=== PATIENT | male | born 1995 | race Caucasian/White ===

== ENCOUNTER 2020-10-24 05:14 | Emergency (ER) | payer OTHER ==
[2020-10-24] MEDS ORDERED: SODIUM CHLORIDE 0.9% 1,000 ML IV STA ×2 (05:29)
[2020-10-24] MEDS ORDERED: SODIUM CHLORIDE 0.9% 500 ML 500 ML IV STA (05:29)
[2020-10-24] MEDS ORDERED: KETOROLAC 15 MG/ML 1 ML VIAL IVP STA (05:29)
--- NOTE | 2020-10-24 05:46 | ED ---
Abdominal Pain HPI <Felix Schwartz - Last Filed: 10/24/20 07:43> - General Source: patient, RN notes reviewed, old records reviewed Mode of arrival: ambulatory Limitations: no limitations - History of Present Illness MD Complaint: abdominal pain, flank pain (left) -: hour(s) Location: LLQ, suprapubic Radiation: L flank Migration to: suprapubic Severity: severe Severity scale (1-10): 7 Quality: sharp Consistency: constant Improves With: nothing Worsens With: nothing Associated Symptoms: nausea Treatments Prior to Arrival: NSAIDs <Jd Yin - Last Filed: 10/24/20 23:06> - General Chief Complaint: Abdominal Pain Stated Complaint: Poss kidney stones Time Seen by Provider: 10/24/20 05:20 - History of Present Illness Initial Comments: This is a 24-year-old male with no significant medical history coming a significant left-sided flank pain 5. His current his back around his back severe with significant hematuria. Mild nausea no vomiting no fevers. No prior history of kidney stones. No difficulty with bowel movements. And again significant metabolic near (Jd Yin) - Related Data Allergies Allergy/AdvReac Type Severity Reaction Status Date / Time No Known Allergies Allergy Verified 10/24/20 05:27 Review of Systems ROS Other: All systems not noted in ROS Statement are negative. <Felix Schwartz - Last Filed: 10/24/20 07:43> ROS Other: All systems not noted in ROS Statement are negative. <Jd Yin - Last Filed: 10/24/20 23:06> ROS Statement: Those systems with pertinent positive or pertinent negative responses have been documented in the HPI. Past Medical History Past Medical History: No Reported History History of Any Multi-Drug Resistant Organisms: None Reported Past Surgical History: No Surgical Hx Reported Past Psychological History: No Psychological Hx Reported Smoking Status: Current every day smoker Past Alcohol Use History: Occasional Past Drug Use History: Marijuana <Jd Yin - Last Filed: 10/24/20 23:06> General Exam Limitations: no limitations <Jd Yin - Last Filed: 10/24/20 23:06> Course <Jd Yin - Last Filed: 10/24/20 23:06> Vital Signs 10/24/20 10/24/20 05:25 08:08 Temperature 98.4 F 97.6 F Pulse Rate 71 79 Respiratory 18 16 Rate Blood Pressure 147/89 113/75 O2 Sat by Pulse 100 98 Oximetry - Reevaluation(s) Reevaluation #1: Medical records reviewed Patient has complete adequate pain control currently Patient is informed of results and questions have been answered (Jd Yin) Medical Decision Making - Lab Data Result diagrams: 10/24/20 05:52 10/24/20 05:52 <Felix Schwartz - Last Filed: 10/24/20 07:43> - Lab Data Result diagrams: 10/24/20 05:52 10/24/20 05:52 - Radiology Data Radiology results: report reviewed (CT head and pelvis does show left ureteral stones), image reviewed <Jd Yin - Last Filed: 10/24/20 23:06> - Medical Decision Making Patient care signed out to me by. Shift physician. Briefly, patient is a 24-year-old male presents today with left flank symptoms. At signout plan was to follow-up with CT radiology read. CT shows 4 mm left proximal ureteral stone with 2 left-sided UPJ stones measuring up to 7 mm with mild left hydroureter. Chin reevaluated at bedside at 7:40 AM found with stable medical condition. Does not appear to be in significant pain. Patient is agreeable for discharge. Is given follow-up with outpatient urologist. Patient told to take [id number] pain medications or rest pain. Told to stay well-hydrated. He is given a starter pack for Zofran. (Felix Schwartz) - Lab Data Lab Results 10/24/20 10/24/20 10/24/20 Range/Units 05:52 05:52 05:52 WBC 17.9 H (3.8-10.6) k/uL RBC 4.97 (4.30-5.90) m/uL Hgb 17.1 (13.0-17.5) gm/dL Hct 46.8 (39.0-53.0) % MCV 94.0 (80.0-100.0) fL MCH 34.3 (25.0-35.0) pg MCHC 36.5 (31.0-37.0) g/dL RDW 11.3 L (11.5-15.5) % Plt Count 275 (150-450) k/uL MPV 7.8 Neutrophils % 90 % Lymphocytes % 6 % Monocytes % 3 % Eosinophils % 0 % Basophils % 0 % Neutrophils # 16.1 H (1.3-7.7) k/uL Lymphocytes # 1.1 (1.0-4.8) k/uL Monocytes # 0.5 (0-1.0) k/uL Eosinophils # 0.1 (0-0.7) k/uL Basophils # 0.1 (0-0.2) k/uL Sodium 137 (137-145) mmol/L Potassium 4.1 (3.5-5.1) mmol/L Chloride 104 (98-107) mmol/L Carbon Dioxide 25 (22-30) mmol/L Anion Gap 8 mmol/L BUN 13 (9-20) mg/dL Creatinine 0.75 (0.66-1.25) mg/dL Est GFR (CKD-EPI)AfAm >90 (>60 ml/min/1.73 sqM) Est GFR (CKD-EPI)NonAf >90 (>60 ml/min/1.73 sqM) Glucose 127 H (74-99) mg/dL Calcium 9.4 (8.4-10.2) mg/dL Total Bilirubin 0.9 (0.2-1.3) mg/dL AST 23 (17-59) U/L ALT 17 (4-49) U/L Alkaline Phosphatase 68 (38-126) U/L Total Protein 7.2 (6.3-8.2) g/dL Albumin 4.6 (3.5-5.0) g/dL Amylase 56 (30-110) U/L Lipase 52 (23-300) U/L Urine Color Dark Red Urine Appearance Cloudy (Clear) Urine pH 6.0 (5.0-8.0) Ur Specific [place] 1.024 (1.001-1.035) Urine Protein 2+ H (Negative) Urine Glucose (UA) Negative (Negative) Urine Ketones 1+ H (Negative) Urine Blood Large H (Negative) Urine Nitrite Negative (Negative) Urine Bilirubin Negative (Negative) Urine Urobilinogen <2.0 (<2.0) mg/dL Ur Leukocyte Esterase Moderate H (Negative) Urine RBC >182 H (0-5) /hpf Urine WBC >182 H (0-5) /hpf Disposition Is patient prescribed a controlled substance at d/c from ED?: No Time of Disposition: 07:45 <Felix Schwartz - Last Filed: 10/24/20 07:43> Is patient prescribed a controlled substance at d/c from ED?: No <Jd Yin - Last Filed: 10/24/20 23:06> Clinical Impression: Abdominal pain, Left ureteral calculus Disposition: HOME SELF-CARE Condition: Good Instructions (If sedation given, give patient instructions): Abdominal Pain (ED) Referrals: Vladimir Flores MD [STAFF PHYSICIAN] - 1-2 days
[2020-10-24 06:23] LABS: Appearance,Urine Cloudy (Clear); Bilirubin,Urine Negative (Negative); Blood,Urine Large (Negative); Color,Urine Dark Red; Glucose,Urine (UA) Negative (Negative); Ketones,Urine 1+ (Negative); Leukocyte Esterase,Urine Moderate (Negative); Nitrite,Urine Negative (Negative); Protein,Urine 2+ (Negative); RBC,Urine >182 /hpf (0-5); Urobilinogen,Urine <2.0 mg/dL (<2.0); WBC,Urine >182 /hpf (0-5)
[2020-10-24 06:25] LABS: Specific Gravity,Urine 1.024 (1.001-1.035)
[2020-10-24 06:32] LABS: Basophils # (A) 0.1 k/uL (0-0.2); Basophils % (A) 0 %; Eosinophils # (A) 0.1 k/uL (0-0.7); Eosinophils % (A) 0 %; HCT 46.8 % (39.0-53.0); HGB 17.1 gm/dL (13.0-17.5); Lymphocytes # (A) 1.1 k/uL (1.0-4.8); Lymphocytes % (A) 6 %; MCH 34.3 pg (25.0-35.0); MCHC 36.5 g/dL (31.0-37.0); Mean Platelet Volume 7.8; Monocytes # (A) 0.5 k/uL (0-1.0); Monocytes % (A) 3 %; Neutrophils # (A) 16.1 k/uL (1.3-7.7); Neutrophils % (A) 90 %; Platelet Count 275 k/uL (150-450); RBC 4.97 m/uL (4.30-5.90); RDW 11.3 % (11.5-15.5); WBC 17.9 k/uL (3.8-10.6)
[2020-10-24 06:45] LABS: ALT 17 U/L (4-49); AST 23 U/L (17-59); African American GFR (CKD) >90 (>60 ml/min/1.73 sqM); Albumin 4.6 g/dL (3.5-5.0); Alkaline Phosphatase 68 U/L (38-126); Amylase 56 U/L (30-110); Anion Gap 8 mmol/L; Blood Urea Nitrogen 13 mg/dL (9-20); Calcium 9.4 mg/dL (8.4-10.2); Carbon Dioxide 25 mmol/L (22-30); Chloride 104 mmol/L (98-107); Glucose 127 mg/dL (74-99); Lipase 52 U/L (23-300); Non-African American GFR(CKD) >90 (>60 ml/min/1.73 sqM); Potassium 4.1 mmol/L (3.5-5.1); Sodium 137 mmol/L (137-145); Total Bilirubin 0.9 mg/dL (0.2-1.3); Total Protein 7.2 g/dL (6.3-8.2)
[2020-10-24] MEDS ORDERED: ONDANSETRON 4 MG/2 ML VIAL IVP PRN (06:51)
[2020-10-24] MEDS ORDERED: ONDANSETRON 4 MG ODT STARTER PACK 2 TAB BTL PO STA (06:51)
[2020-10-24] MEDS ORDERED: TAMSULOSIN 0.4 MG CAP.ER.24H PO STA (06:51)
[2020-10-24] MEDS ORDERED: ONDANSETRON 4 MG/2 ML VIAL IVP STA (06:51)
[2020-10-24] MEDS ORDERED: ACET/COD 300 MG/30 MG STARTER PACK 6 TAB BTL PO STA (06:51)
[2020-10-24] MEDS ORDERED: Acetaminophen-Codeine 300-30mg TAB PO STA (06:51)
[2020-10-24 08:10] VITALS: BP 113/75; PULSE 79; RESP 16; TEMP 97.6
--- NOTE | 2020-10-24 08:18 | CT ---
EXAM: CT Abdomen and Pelvis Without Intravenous Contrast CLINICAL HISTORY: Left flank pain since yesterday. Gross hematuria. Negative history of renal stones TECHNIQUE: Axial computed tomography images of the abdomen and pelvis without intravenous contrast. CTDI is 5.2 mGy and DLP is 315.7 mGy-cm. This CT exam was performed using one or more of the following dose reduction techniques: automated exposure control, adjustment of the mA and/or kV according to patient size, and/or use of iterative reconstruction technique. COMPARISON: none available FINDINGS: Lung bases: Unremarkable. No mass. No consolidation. ABDOMEN: Liver: Unremarkable. Gallbladder and bile ducts: Unremarkable. No calcified stones. No ductal dilation. Pancreas: Unremarkable. No ductal dilation. Spleen: Unremarkable. No splenomegaly. Adrenals: Unremarkable. No mass. Kidneys and ureters: 4 mm left proximal ureteral stone with 2 left- sided ureteropelvic junction stones measuring up to 7 mm. Mild left hydroureter. No hydronephrosis or perinephric stranding. Stomach and bowel: Mild fecal burden throughout the colon. No obstruction. No mucosal thickening. PELVIS: Appendix: No findings to suggest acute appendicitis. Appendix is pneumatized and normal in caliber in the right lower quadrant Bladder: Unremarkable. No stones. Reproductive: Unremarkable as visualized. ABDOMEN and PELVIS: Intraperitoneal space: Unremarkable. No free air. No significant fluid collection. Bones/joints: No acute fracture. No dislocation. Soft tissues: Unremarkable. Vasculature: Unremarkable. No abdominal aortic aneurysm. Lymph nodes: Unremarkable. No enlarged lymph nodes. IMPRESSION: 4 mm left proximal ureteral stone with 2 left-sided ureteropelvic junction stones measuring up to 7 mm. Mild left hydroureter.
== END 2020-10-24 08:08 | disposition home or self-care (01) ==
LOC: EC 05:14
DX: N13.4 Hydroureter (principal); N20.1 Calculus of ureter; F17.200 Nicotine dependence, unspecified, uncomplicated
CPT/HCPCS: 36415; 80053; 82150; 83690; 85025; 81001; 87086; 74176; 99285; 96374; 96361 ×2; J1885

== ENCOUNTER 2020-10-28 09:56 | Emergency (ER) | payer SELFPAY ==
[2020-10-28 10:04] VITALS: TEMP 98.1
[2020-10-28] MEDS ORDERED: KETOROLAC 15 MG/ML 1 ML VIAL IVP STA (10:15)
--- NOTE | 2020-10-28 10:24 | ED ---
Back Pain HPI - General Chief Complaint: Back Pain/Injury Stated Complaint: Kidney Pain Time Seen by Provider: 10/28/20 10:05 Source: patient Limitations: no limitations - History of Present Illness Initial Comments: 24yo male who denies PMH presenting for left flank pain persisting and constipation. pt states he was recently diagnosed with a left sided kidney stone he states he knows it was 4mm. pt states that pain initially was coming and going. now it is constant and intense. denies vomiting. pt denies hematuria,states he did have some when he initially presented to the ER. Patient denies fevers. Patient states he believes he passed one stone. pt also made note that since Thursday (5 days ago). He has not been able to have a bowel movement and feels constipation. pt denies use of opioids, denies abdominal pain, admits to abdominal distention. Patient denies nausea. patient appears well nontoxic on arrival. no obvious distress. at times holds the left flank. - Related Data Home Medications Medication Instructions Recorded Confirmed bisacodyL [Dulcolax] 10 mg PO DAILY PRN 10/28/20 10/28/20 Previous Rx's Medication Instructions Recorded Ketorolac [Toradol] 10 mg PO Q8HR PRN 3 Days #9 tab 10/28/20 Magnesium Citrate 296 ml PO DAILY 1 Days #296 ml 10/28/20 Ondansetron Odt [Zofran Odt] 4 mg PO Q8HR PRN 3 Days #9 tab 10/28/20 Tamsulosin HCl [Flomax] 0.4 mg PO DAILY 7 Days #7 cap 10/28/20 Allergies Allergy/AdvReac Type Severity Reaction Status Date / Time No Known Allergies Allergy Verified 10/28/20 10:53 Review of Systems ROS Statement: Those systems with pertinent positive or pertinent negative responses have been documented in the HPI. ROS Other: All systems not noted in ROS Statement are negative. Past Medical History Past Medical History: No Reported History Additional Past Medical History / Comment(s): kideny stones History of Any Multi-Drug Resistant Organisms: None Reported Past Surgical History: Hernia Repair Past Psychological History: No Psychological Hx Reported Smoking Status: Current every day smoker Past Alcohol Use History: Occasional Past Drug Use History: Marijuana General Exam - General Exam Comments Initial Comments: General: The patient is awake and alert, in no distress Eye: Pupils are equal, round and reactive to light, extra-ocular movements are intact. No nystagmus. There is normal conjunctiva bilaterally. No signs of icterus. Ears, nose, mouth and throat: There are moist mucous membranes and no oral lesions. Neck: The neck is supple, there is no tenderness or JVD. Cardiovascular: There is a regular rate and rhythm. No murmur, rub or gallop is appreciated. Respiratory: Lungs are clear to auscultation, respirations are non-labored, breath sounds are equal. No wheezes, stridor, rales, or rhonchi. Gastrointestinal: Soft, non-distended, non-tender abdomen without masses or organomegaly noted. There is no rebound or guarding present. Musculoskeletal: Normal ROM, no tenderness. Strength 5/5. Sensation intact. Radial pulses equal bilaterally 2+. Neurological: A&O x 3. CN II-XII intact grossly, There are no obvious motor or sensory deficits. Coordination appears grossly intact. Speech is normal. Skin: Skin is warm and dry and no rashes or lesions are noted. Psychiatric: Cooperative, appropriate mood & affect, normal judgment. Limitations: no limitations Course Vital Signs 10/28/20 10/28/20 10:01 11:46 Temperature 98.1 F Pulse Rate 81 67 Respiratory 18 16 Rate Blood Pressure 144/95 131/75 O2 Sat by Pulse 100 99 Oximetry Medical Decision Making - Medical Decision Making 24yo with confirmed urolithasis via CT 3 days prior presenting for flank pain. labs stable. no critical findings, decreased oral intake for past 3 days including food. pt states he was not provided pain medications. pt states that the pain persists. resolved in ER. patient given flomax, toradol and urology f/u. he is to increase fluids. pt did not appear to have significant fecal retention on KUB. feel decreased BM secondary to not eating. may try magnesium citrate if symptoms persist. discussed case with Dr. Kay and patient was discharged appearing well. - Lab Data Result diagrams: 10/28/20 10:19 10/28/20 10:19 Lab Results 10/28/20 10/28/20 10/28/20 Range/Units 10:13 10:19 10:19 WBC 11.8 H (3.8-10.6) k/uL RBC 5.11 (4.30-5.90) m/uL Hgb 17.1 (13.0-17.5) gm/dL Hct 47.2 (39.0-53.0) % MCV 92.5 (80.0-100.0) fL MCH 33.5 (25.0-35.0) pg MCHC 36.3 (31.0-37.0) g/dL RDW 10.9 L (11.5-15.5) % Plt Count 260 (150-450) k/uL MPV 7.9 Neutrophils % 84 % Lymphocytes % 9 % Monocytes % 5 % Eosinophils % 1 % Basophils % 1 % Neutrophils # 9.8 H (1.3-7.7) k/uL Lymphocytes # 1.1 (1.0-4.8) k/uL Monocytes # 0.5 (0-1.0) k/uL Eosinophils # 0.1 (0-0.7) k/uL Basophils # 0.1 (0-0.2) k/uL Sodium 135 L (137-145) mmol/L Potassium 4.3 (3.5-5.1) mmol/L Chloride 101 (98-107) mmol/L Carbon Dioxide 23 (22-30) mmol/L Anion Gap 11 mmol/L BUN 21 H (9-20) mg/dL Creatinine 1.13 (0.66-1.25) mg/dL Est GFR (CKD-EPI)AfAm >90 (>60 ml/min/1.73 sqM) Est GFR (CKD-EPI)NonAf 90 (>60 ml/min/1.73 sqM) Glucose 130 H (74-99) mg/dL Calcium 9.4 (8.4-10.2) mg/dL Total Bilirubin 1.5 H (0.2-1.3) mg/dL AST 33 (17-59) U/L ALT 15 (4-49) U/L Alkaline Phosphatase 53 (38-126) U/L Total Protein 8.0 (6.3-8.2) g/dL Albumin 4.9 (3.5-5.0) g/dL Urine Color Light Yellow Urine Appearance Clear (Clear) Urine pH 6.0 (5.0-8.0) Ur Specific [place] 1.004 (1.001-1.035) Urine Protein Negative (Negative) Urine Glucose (UA) Negative (Negative) Urine Ketones Negative (Negative) Urine Blood Moderate H (Negative) Urine Nitrite Negative (Negative) Urine Bilirubin Negative (Negative) Urine Urobilinogen <2.0 (<2.0) mg/dL Ur Leukocyte Esterase Small H (Negative) Urine RBC 39 H (0-5) /hpf Urine WBC 5 (0-5) /hpf Amorphous Sediment Rare H (None) /hpf Urine Bacteria Rare H (None) /hpf Disposition Clinical Impression: Constipation, Urolithiasis, Flank pain Disposition: HOME SELF-CARE Condition: Good Instructions (If sedation given, give patient instructions): Constipation (ED), Kidney Stones (ED), Lithotripsy (DC) Additional Instructions: Please use medication as discussed. Please follow-up with urology next week, please call first thing Thursday to schedule your appointment please. Return for fevers. Please return to emergency room if the symptoms increase or worsen or for any other concerns. Prescriptions: Tamsulosin HCl [Flomax] 0.4 mg PO DAILY 7 Days #7 cap Magnesium Citrate 296 ml PO DAILY 1 Days #296 ml Ketorolac [Toradol] 10 mg PO Q8HR PRN 3 Days #9 tab PRN Reason: Pain Ondansetron Odt [Zofran Odt] 4 mg PO Q8HR PRN 3 Days #9 tab PRN Reason: Nausea Is patient prescribed a controlled substance at d/c from ED?: No Referrals: None,Stated [Primary Care Provider] - 1-2 days Miguel Angel Beasley MD [STAFF PHYSICIAN] - 1-2 days Time of Disposition: 11:20
[2020-10-28 10:25] LABS: Basophils # (A) 0.1 k/uL (0-0.2); Basophils % (A) 1 %; Eosinophils # (A) 0.1 k/uL (0-0.7); Eosinophils % (A) 1 %; HCT 47.2 % (39.0-53.0); HGB 17.1 gm/dL (13.0-17.5); Lymphocytes # (A) 1.1 k/uL (1.0-4.8); Lymphocytes % (A) 9 %; MCH 33.5 pg (25.0-35.0); MCHC 36.3 g/dL (31.0-37.0); MCV 92.5 fL (80.0-100.0); Mean Platelet Volume 7.9; Monocytes # (A) 0.5 k/uL (0-1.0); Monocytes % (A) 5 %; Neutrophils # (A) 9.8 k/uL (1.3-7.7); Neutrophils % (A) 84 %; Platelet Count 260 k/uL (150-450); RBC 5.11 m/uL (4.30-5.90); RDW 10.9 % (11.5-15.5); WBC 11.8 k/uL (3.8-10.6)
[2020-10-28 10:42] LABS: Amorphous Sediment,Urine Rare /hpf; Appearance,Urine Clear (Clear); Bacteria,Urine Rare /hpf; Bilirubin,Urine Negative (Negative); Blood,Urine Moderate (Negative); Color,Urine Light Yellow; Glucose,Urine (UA) Negative (Negative); Ketones,Urine Negative (Negative); Leukocyte Esterase,Urine Small (Negative); Nitrite,Urine Negative (Negative); Protein,Urine Negative (Negative); RBC,Urine 39 /hpf (0-5); Specific Gravity,Urine 1.004 (1.001-1.035); Urobilinogen,Urine <2.0 mg/dL (<2.0); WBC,Urine 5 /hpf (0-5)
[2020-10-28 10:50] LABS: ALT 15 U/L (4-49); AST 33 U/L (17-59); African American GFR (CKD) >90 (>60 ml/min/1.73 sqM); Albumin 4.9 g/dL (3.5-5.0); Alkaline Phosphatase 53 U/L (38-126); Anion Gap 11 mmol/L; Blood Urea Nitrogen 21 mg/dL (9-20); Calcium 9.4 mg/dL (8.4-10.2); Carbon Dioxide 23 mmol/L (22-30); Chloride 101 mmol/L (98-107); Glucose 130 mg/dL (74-99); Non-African American GFR(CKD) 90 (>60 ml/min/1.73 sqM); Sodium 135 mmol/L (137-145); Total Bilirubin 1.5 mg/dL (0.2-1.3)
[2020-10-28] MEDS ORDERED: SODIUM CHLORIDE 0.9% 500 ML 500 ML IV ONE (11:08)
--- NOTE | 2020-10-28 11:09 | XR ---
EXAMINATION TYPE: XR KUB DATE OF EXAM: 10/28/2020 10:34 AM CLINICAL HISTORY: Left-sided flank and back pain. Constipation. TECHNIQUE: Two Upright KUB images of the abdomen are obtained. COMPARISON: CT abdomen and pelvis 4 days ago. FINDINGS: Scattered gas is seen in non-distended small bowel loops. Gas and fecal material is seen in non-distended colon. At least 2 left-sided renal calculi measuring 4 to 5 mm in size redemonstrated. Third calculus less well seen. Lung bases remain clear. No pneumoperitoneum. Osseous structures are intact. IMPRESSION: Overall nonobstructive bowel gas pattern remains present. Left-sided nephrolithiasis redemonstrated
[2020-10-28 11:10] LABS: Potassium 4.3 mmol/L (3.5-5.1)
[2020-10-28 11:48] VITALS: BP 131/75; PULSE 67; RESP 16
== END 2020-10-28 11:55 | disposition home or self-care (01) ==
LOC: EC 09:56
DX: K59.00 Constipation, unspecified (principal); N20.9 Urinary calculus, unspecified; F17.200 Nicotine dependence, unspecified, uncomplicated
CPT/HCPCS: 36415; 80053; 85025; 81001; 74018; 99283; 96374; J1885

== ENCOUNTER 2021-01-06 15:56 | Emergency (ER) | payer BC ==
[2021-01-06 16:08] VITALS: BP 141/63; PULSE 81; RESP 18; TEMP 97.9
[2021-01-06] MEDS ORDERED: KETOROLAC 15 MG/ML 1 ML VIAL IVP STA (16:25)
[2021-01-06] MEDS ORDERED: SODIUM CHLORIDE 0.9% 1,000 ML IV ONE (16:25)
[2021-01-06 16:28] LABS: Appearance,Urine Clear (Clear); Bilirubin,Urine Negative (Negative); Blood,Urine Small (Negative); Color,Urine Light Yellow; Glucose,Urine (UA) Negative (Negative); Ketones,Urine Negative (Negative); Leukocyte Esterase,Urine Negative (Negative); Nitrite,Urine Negative (Negative); PH, Urine 5.5 (5.0-8.0); Protein,Urine Negative (Negative); RBC,Urine <1 /hpf (0-5); Specific Gravity,Urine 1.003 (1.001-1.035); Urobilinogen,Urine <2.0 mg/dL (<2.0); WBC,Urine 1 /hpf (0-5)
--- NOTE | 2021-01-06 16:43 | ED ---
General Adult HPI - General Chief complaint: Urogenital Stated complaint: Kidney Pain Time Seen by Provider: 01/06/21 16:14 Source: patient Mode of arrival: ambulatory Limitations: no limitations - History of Present Illness Initial comments: 25 year-old male patient presents to the emergency department for evaluation of left flank pain and dysuria. Patient states that symptoms started yesterday with dysuria and he started to develop flank pain today. Patient did have 2 kidney stones in October. States symptoms feel similar. Denies any nausea or v omiting. Denies constipation or diarrhea. Denies any fever or chills. Denies any hematuria. Denies concern for sexually transmitted infections. Denies participation in anal sex or sounding. Patient denies any recent rash, cough, shortness of breath, chest pain, numbness, tingling, dizziness, weakness, headache, visual changes, or any other complaints. - Related Data Home Medications Medication Instructions Recorded Confirmed bisacodyL [Dulcolax] 10 mg PO DAILY PRN 10/28/20 10/28/20 Previous Rx's Medication Instructions Recorded Ketorolac [Toradol] 10 mg PO Q8HR PRN 3 Days #9 tab 10/28/20 Magnesium Citrate 296 ml PO DAILY 1 Days #296 ml 10/28/20 Ondansetron Odt [Zofran Odt] 4 mg PO Q8HR PRN 3 Days #9 tab 10/28/20 Tamsulosin HCl [Flomax] 0.4 mg PO DAILY 7 Days #7 cap 10/28/20 Ibuprofen [Motrin] 600 mg PO Q8HR PRN #30 tab 01/06/21 Tamsulosin HCl [Flomax] 0.4 mg PO DAILY #7 cap 01/06/21 Allergies Allergy/AdvReac Type Severity Reaction Status Date / Time No Known Allergies Allergy Verified 01/06/21 16:08 Review of Systems ROS Statement: Those systems with pertinent positive or pertinent negative responses have been documented in the HPI. ROS Other: All systems not noted in ROS Statement are negative. Past Medical History Past Medical History: No Reported History Additional Past Medical History / Comment(s): kideny stones History of Any Multi-Drug Resistant Organisms: None Reported Past Surgical History: Hernia Repair Past Psychological History: No Psychological Hx Reported Smoking Status: Current every day smoker Past Alcohol Use History: Occasional Past Drug Use History: Marijuana General Exam Limitations: no limitations General appearance: alert, in no apparent distress, other (This is a well-develo ped, well-nourished adult male patient in no acute distress. Vital signs upon presentation are temperature 97.9F, pulse 81, respirations 18, blood pressure 141/63, pulse ox 98% on room air.) Eye exam: Present: normal appearance, PERRL, EOMI. Absent: scleral icterus, conjunctival injection, periorbital swelling ENT exam: Present: normal exam, normal oropharynx, mucous membranes moist Respiratory exam: Present: normal lung sounds bilaterally. Absent: respiratory distress, wheezes, rales, rhonchi, stridor Cardiovascular Exam: Present: regular rate, normal rhythm, normal heart sounds. Absent: systolic murmur, diastolic murmur, rubs, gallop, clicks GI/Abdominal exam: Present: soft, normal bowel sounds. Absent: distended, tenderness, guarding, rebound, rigid Back exam: Present: normal inspection. Absent: CVA tenderness (R), CVA tenderness (L) Neurological exam: Present: alert, oriented X3, CN II-XII intact Psychiatric exam: Present: normal affect, normal mood Skin exam: Present: warm, dry, intact, normal color. Absent: rash Course Vital Signs 01/06/21 16:06 Temperature 97.9 F Pulse Rate 81 Respiratory 18 Rate Blood Pressure 141/63 O2 Sat by Pulse 98 Oximetry Medical Decision Making - Medical Decision Making 25-year-old male patient presented to the emergency department today for evaluation of left flank pain and dysuria. Physical examination did reveal soft nontender abdomen. No CVA tenderness. He does have history of kidney stones with recent stones in October. Labs reviewed and did reveal white blood cell count is 16 this is felt to be reactive due to pain. Normal vital signs. Urinalysis shows no evidence for infection. Urinalysis showed a small amount of blood. KUB was obtained and did show possible 5 mm stone in the left distal ureteral region. I did discuss the case with the patient he'll be started on Flomax, pain medication, nausea medication. He is instructed to follow up with urologist for further evaluation as soon as possible. Return parameters were discussed in detail. He verbalizes understanding and agrees this plan. Case discussed with my attending Dr. Small. - Lab Data Result diagrams: 01/06/21 16:38 01/06/21 16:38 Lab Results 01/06/21 01/06/21 01/06/21 Range/Units 16:15 16:38 16:38 WBC 16.5 H (3.8-10.6) k/uL RBC 4.74 (4.30-5.90) m/uL Hgb 15.5 (13.0-17.5) gm/dL Hct 44.0 (39.0-53.0) % MCV 92.7 (80.0-100.0) fL MCH 32.8 (25.0-35.0) pg MCHC 35.4 (31.0-37.0) g/dL RDW 11.3 L (11.5-15.5) % Plt Count 262 (150-450) k/uL MPV 8.2 Neutrophils % (Manual) 89 % Lymphocytes % (Manual) 7 % Monocytes % (Manual) 4 % Neutrophils # (Manual) 14.69 H (1.3-7.7) k/uL Lymphocytes # (Manual) 1.16 (1.0-4.8) k/uL Monocytes # (Manual) 0.66 (0-1.0) k/uL Nucleated RBCs 0 (0-0) /100 WBC Manual Slide Review Performed Sodium 138 (137-145) mmol/L Potassium 4.4 (3.5-5.1) mmol/L Chloride 102 (98-107) mmol/L Carbon Dioxide 26 (22-30) mmol/L Anion Gap 10 mmol/L BUN 14 (9-20) mg/dL Creatinine 0.81 (0.66-1.25) mg/dL Est GFR (CKD-EPI)AfAm >90 (>60 ml/min/1.73 sqM) Est GFR (CKD-EPI)NonAf >90 (>60 ml/min/1.73 sqM) Glucose 105 H (74-99) mg/dL Calcium 9.6 (8.4-10.2) mg/dL Total Bilirubin 0.7 (0.2-1.3) mg/dL AST 31 (17-59) U/L ALT 24 (4-49) U/L Alkaline Phosphatase 63 (38-126) U/L Total Protein 7.2 (6.3-8.2) g/dL Albumin 4.7 (3.5-5.0) g/dL Lipase 48 (23-300) U/L Urine Color Light Yellow Urine Appearance Clear (Clear) Urine pH 5.5 (5.0-8.0) Ur Specific [place] 1.003 (1.001-1.035) Urine Protein Negative (Negative) Urine Glucose (UA) Negative (Negative) Urine Ketones Negative (Negative) Urine Blood Small H (Negative) Urine Nitrite Negative (Negative) Urine Bilirubin Negative (Negative) Urine Urobilinogen <2.0 (<2.0) mg/dL Ur Leukocyte Esterase Negative (Negative) Urine RBC <1 (0-5) /hpf Urine WBC 1 (0-5) /hpf - Radiology Data Radiology results: report reviewed, image reviewed 2 views of the abdomen are obtained. Report was reviewed in its entirety. Impression by Dr. Foley shows possible distal left ureteral stone which is a change compared to old exam. Disposition Clinical Impression: Kidney stone on left side Disposition: HOME SELF-CARE Condition: Good Instructions (If sedation given, give patient instructions): Kidney Stones (ED) Additional Instructions: Take medications as directed. Increase fluids. Follow-up with urologist for further evaluation as soon as possible, call tomorrow morning for an appointment. Return to the emergency department for any new, worsening, or concerning symptoms. Prescriptions: Tamsulosin HCl [Flomax] 0.4 mg PO DAILY #7 cap Ibuprofen [Motrin] 600 mg PO Q8HR PRN #30 tab PRN Reason: Pain Is patient prescribed a controlled substance at d/c from ED?: No Referrals: Shine Davila DO [Primary Care Provider] - 1-2 days Time of Disposition: 17:44
--- NOTE | 2021-01-06 16:54 | XR ---
EXAMINATION TYPE: XR KUB DATE OF EXAM: 01/06/2021 COMPARISON: 10/28/2020 HISTORY: Pain TECHNIQUE: 2 views FINDINGS: 2 views upright show no sign of intestinal obstruction or pneumoperitoneum. Fecal pattern i s normal. There is no evidence of a mass. There are no pathologic calcifications over the kidneys. Th ere is 5 mm calcification in the pelvis on the left side that could be distal left ureteral calculus. IMPRESSION: Possible distal left ureteral stone which is a change compared to old exam.
[2021-01-06 16:58] LABS: HGB 15.5 gm/dL (13.0-17.5); MCH 32.8 pg (25.0-35.0); MCHC 35.4 g/dL (31.0-37.0); MCV 92.7 fL (80.0-100.0); Mean Platelet Volume 8.2; Platelet Count 262 k/uL (150-450); RBC 4.74 m/uL (4.30-5.90); RDW 11.3 % (11.5-15.5); WBC 16.5 k/uL (3.8-10.6)
[2021-01-06 17:12] LABS: ALT 24 U/L (4-49); AST 31 U/L (17-59); African American GFR (CKD) >90 (>60 ml/min/1.73 sqM); Albumin 4.7 g/dL (3.5-5.0); Alkaline Phosphatase 63 U/L (38-126); Anion Gap 10 mmol/L; Blood Urea Nitrogen 14 mg/dL (9-20); Calcium 9.6 mg/dL (8.4-10.2); Carbon Dioxide 26 mmol/L (22-30); Chloride 102 mmol/L (98-107); Glucose 105 mg/dL (74-99); Lipase 48 U/L (23-300); Non-African American GFR(CKD) >90 (>60 ml/min/1.73 sqM); Potassium 4.4 mmol/L (3.5-5.1); Sodium 138 mmol/L (137-145); Total Bilirubin 0.7 mg/dL (0.2-1.3); Total Protein 7.2 g/dL (6.3-8.2)
[2021-01-06 17:29] LABS: Lymphocytes # (M) 1.16 k/uL (1.0-4.8); Monocytes # (M) 0.66 k/uL (0-1.0); Neutrophils # (M) 14.69 k/uL (1.3-7.7); Neutrophils % (M) 89 %; Nucleated Red Blood Cells 0 /100 WBC (0-0); Total Cells Counted 100
[2021-01-06] MEDS ORDERED: ACET/COD 300 MG/30 MG STARTER PACK 6 TAB BTL PO STA (17:45)
[2021-01-06] MEDS ORDERED: ONDANSETRON 4 MG ODT STARTER PACK 2 TAB BTL PO STA (17:45)
[2021-01-06] MEDS ORDERED: TAMSULOSIN 0.4 MG CAP.ER.24H PO STA (17:45)
== END 2021-01-06 18:01 | disposition home or self-care (01) ==
LOC: EC 15:56
DX: N20.0 Calculus of kidney (principal); F17.200 Nicotine dependence, unspecified, uncomplicated
CPT/HCPCS: 36415; 80053; 83690; 85025; 81001; 74018; 99284; 96374; 96361; J1885; S0119

== ENCOUNTER → 2022-07-31 | Outpatient (CLI) | payer OTHER ==
--- NOTE | 2022-07-31 10:26 | XR ---
EXAMINATION TYPE: XR shoulder complete LT, XR scapula LT DATE OF EXAM: 07/31/2022 CLINICAL HISTORY: Contusion injury with pain. TECHNIQUE: Three views of the left shoulder are obtained. 2 views left scapula. COMPARISON: None. FINDINGS: There is no acute fracture/dislocation evident in the left shoulder. The acromioclavicula r and glenohumeral joint spaces appear within normal limits. The visualized ribs are intact and unre markable. Images of left scapula show no acute displaced fracture. Overlying soft tissue is unremarkable. IMPRESSION: There is no acute fracture or dislocation in the left scapula or shoulder.
--- NOTE | 2022-07-31 10:27 | XR ---
EXAMINATION TYPE: XR chest 1V DATE OF EXAM: 07/31/2022 COMPARISON: NONE HISTORY: Contusion injury with pain. TECHNIQUE: Single frontal view of the chest is obtained. FINDINGS: There is no focal air space opacity, pleural effusion, or pneumothorax seen. The cardiac silhouette size is within normal limits. The osseous structures are intact. IMPRESSION: No acute process.
--- NOTE | 2022-07-31 10:28 | XR ---
EXAMINATION TYPE: XR thoracic spine complete DATE OF EXAM: 07/31/2022 CLINICAL HISTORY: Contusion injury with pain. TECHNIQUE: Frontal, lateral, and swimmer's view of thoracic spine are obtained. COMPARISON: None. FINDINGS: Thoracic spine show slight levoconvex scoliosis centered in the mid to lower thoracic spine without evidence of acute fracture or dislocation. Vertebral body heights and disc space heights ar e preserved. Visualized ribs are intact bilaterally. IMPRESSION: No acute fracture or dislocation is seen in the thoracic spine.
== END | disposition home or self-care (01) ==
LOC: RADXRMAIN 09:57
PROVIDERS: ATTEND Emergency Medicine
DX: S40.012A Contusion of left shoulder, initial encounter (principal); R07.9 Chest pain, unspecified; M54.6 Pain in thoracic spine
CPT/HCPCS: 71045; 72072

== ENCOUNTER 2025-01-29 13:12 | Emergency (ER) | payer OTHER ==
--- NOTE | 2025-01-29 14:24 | ED ---
Back Pain HPI - General Chief Complaint: Back Pain/Injury Stated Complaint: low back pain Time Seen by Provider: 01/29/25 13:29 Source: patient, RN notes reviewed Mode of arrival: ambulatory Limitations: no limitations - History of Present Illness Initial Comments: 29-year-old male presents emergency department with chief complaint of left lower back pain. Patient states he is acute on symptoms. Patient states he did step down to the porch and felt something pinch and states that he has severe pain worse with any movement. He denies any bowel, bladder incontinence retention no saddle anesthesias. Patient states pain does not radiate down his leg he has no abdominal complaints no other associated symptoms. Denies falling - Related Data Home Medications Medication Instructions Recorded Confirmed bisacodyL [Dulcolax] 10 mg PO DAILY PRN 10/28/20 10/28/20 Previous Rx's Medication Instructions Recorded Ketorolac [Toradol] 10 mg PO Q8HR PRN 3 Days #9 tab 10/28/20 Magnesium Citrate 296 ml PO DAILY 1 Days #296 ml 10/28/20 Ondansetron Odt [Zofran Odt] 4 mg PO Q8HR PRN 3 Days #9 tab 10/28/20 Tamsulosin HCl [Flomax] 0.4 mg PO DAILY 7 Days #7 cap 10/28/20 Ibuprofen [Motrin] 600 mg PO Q8HR PRN #30 tab 01/06/21 Tamsulosin HCl [Flomax] 0.4 mg PO DAILY #7 cap 01/06/21 Cyclobenzaprine [Flexeril] 10 mg PO TID PRN #15 tab 01/29/25 Ketorolac [Toradol] 10 mg PO Q8HR #15 tab 01/29/25 predniSONE 50 mg PO DAILY #5 tab 01/29/25 Allergies Allergy/AdvReac Type Severity Reaction Status Date / Time No Known Allergies Allergy Verified 01/29/25 13:26 Review of Systems ROS Statement: Those systems with pertinent positive or pertinent negative responses have been documented in the HPI. ROS Other: All systems not noted in ROS Statement are negative. Past Medical History Past Medical History: No Reported History Additional Past Medical History / Comment(s): kidney stones History of Any Multi-Drug Resistant Organisms: None Reported Past Surgical History: Hernia Repair Past Psychological History: No Psychological Hx Reported Smoking Status: Current every day smoker Past Alcohol Use History: Occasional Past Drug Use History: Marijuana General Exam Limitations: no limitations General appearance: alert, in no apparent distress Head exam: Present: atraumatic, normocephalic, normal inspection Eye exam: Present: normal appearance, PERRL, EOMI. Absent: scleral icterus, conjunctival injection, periorbital swelling ENT exam: Present: normal exam, normal oropharynx, mucous membranes moist Neck exam: Present: normal inspection, full ROM. Absent: tenderness, meningismus, lymphadenopathy Respiratory exam: Present: normal lung sounds bilaterally. Absent: respiratory distress, wheezes, rales, rhonchi, stridor Cardiovascular Exam: Present: regular rate, normal rhythm, normal heart sounds. Absent: systolic murmur, diastolic murmur, rubs, gallop, clicks GI/Abdominal exam: Present: soft, normal bowel sounds. Absent: distended, tenderness, guarding, rebound, rigid Extremities exam: Present: normal inspection, full ROM, normal capillary refill. Absent: tenderness, pedal edema, joint swelling, calf tenderness Back exam: Present: full ROM, tenderness, muscle spasm, paraspinal tenderness. Absent: vertebral tenderness Neurological exam: Present: reflexes normal. Absent: motor sensory deficit Course Vital Signs 01/29/25 13:21 Temperature 98.5 F Pulse Rate 89 Respiratory 20 Rate Blood Pressure 136/88 O2 Sat by Pulse 100 Oximetry Medical Decision Making - Medical Decision Making Was pt. sent in by a medical professional or institution (KATHY Rose, LINK MACHINE OPERATOR, urgent care, hospital, or longterm...) When possible be specific @ -No Did you speak to anyone other than the patient for history (EMS, parent, family, police, friend...)? What history was obtained from this source @ -No Did you review nursing and triage notes (agree or disagree)? Why? @ -I reviewed and agree with nursing and triage notes Were old charts reviewed (outside hosp., previous admission, EMS record, old EKG, old radiological studies, urgent care reports/EKG's, longterm records)? Report findings @ -No old charts were reviewed Differential Diagnosis (chest pain, altered mental status, abdominal pain women, abdominal pain men, vaginal bleeding, weakness, fever, dyspnea, syncope, headache, dizziness, GI bleed, back pain, seizure, CVA, palpatations, mental health, musculoskeletal)? @ -[Differential Back Pain: Strain, zoster, cauda equina syndrome, epidural abscess, vertebral osteomyelitis, discitis, fracture, subluxation, disc herniation, DJD, spinal stenosis, dissection, AAA, pancreatitis, peptic ulcer disease, pyelonephritis, kidney stone, this is not meant to be an all-inclusive list. EKG interpreted by me (3pts min.). @ -None X-rays interpreted by me (1pt min.). @ -None done CT interpreted by me (1pt min.). @ -None done U/S interpreted by me (1pt. min.). @ -None done What testing was considered but not performed or refused? (CT, X-rays, U/S, labs)? Why? @ -None What meds were considered but not given or refused? Why? @ -None Did you discuss the management of the patient with other professionals (lulú singleton i.e. , PA, LINK MACHINE OPERATOR, lab, RT, psych nurse, administrator social welfare, glass blower, teacher, prison officer, disease case manager rn)? Give summary @ -No Was smoking cessation discussed for >3mins.? @ -No Was critical care preformed (if so, how long)? @ -No Were there social determinants of health that impacted care today? How? (Homelessness, low income, unemployed, alcoholism, drug addiction, transportation, low edu. Level, literacy, decrease access to med. care, [place] [facility], rehab)? @ -No Was there de-escalation of care discussed even if they declined (Discuss DNR or withdrawal of care, Hospice)? DNR status @ -No What co-morbidities impacted this encounter? (DM, HTN, Smoking, COPD, CAD, Cancer, CVA, ARF, Chemo, Hep., AIDS, mental health diagnosis, sleep apnea, morbid obesity)? @ -None Was patient admitted / discharged? Hospital course, mention meds given and route, prescriptions, significant lab abnormalities, going to OR and other pertinent info. @ -Discharge patient presented after acute strain of lumbar spine with no red flag symptoms. Patient is improved after analgesics. Patient stable condition return parameters leo. Undiagnosed new problem with uncertain prognosis? @ -No Drug Therapy requiring intensive monitoring for toxicity (Heparin, Nitro, Insulin, Cardizem)? @ -No Were any procedures done? @ -No Diagnosis/symptom? @ -Lumbar strain, lumbar spasm Acute, or Chronic, or Acute on Chronic? @ -Acute Uncomplicated (without systemic symptoms) or Complicated (systemic symptoms)? @ -[Uncomplicated Side effects of treatment? @ -No Exacerbation, Progression, or Severe Exacerbation? @ -No Poses a threat to life or bodily function? How? (Chest pain, [place], [place], pneumonia, PE, COPD, DKA, ARF, appy, cholecystitis, CVA, Diverticulitis, Homicidal, Suicidal, threat to staff... and all critical care pts) @ -No Disposition Clinical Impression: Strain of lumbar region, Lumbar paraspinal muscle spasm Disposition: HOME SELF-CARE Condition: Stable Instructions (If sedation given, give patient instructions): Acute Low Back Pain (ED) Additional Instructions: Please return to the Emergency Department if symptoms worsen or any other concerns. Prescriptions: Cyclobenzaprine [Flexeril] 10 mg PO TID PRN #15 tab PRN Reason: Muscle Spasm predniSONE 50 mg PO DAILY #5 tab Ketorolac [Toradol] 10 mg PO Q8HR #15 tab Is patient prescribed a controlled substance at d/c from ED?: No Referrals: Shine Davila DO [Primary Care Provider] - 1-2 days Time of Disposition: 16:00
[2025-01-29] MEDS: KETOROLAC 15 MG/ML 1 ML VIAL IM STA (14:29)
[2025-01-29] MEDS: LIDOCAINE 4% PATCH TOPICAL ONE (14:29)
[2025-01-29] MEDS: HYDROmorphone 1 MG/ML 1 ML SYRINGE IM STA (15:34)
[2025-01-29] MEDS: ACET/COD 300 MG/30 MG STARTER PACK 6 TAB BTL PO STA (16:12)
[2025-01-29 16:17] VITALS: BP 134/70; PULSE 90; RESP 16; TEMP 98
== END 2025-01-29 16:16 | disposition home or self-care (01) ==
LOC: EC 13:12
DX: S39.012A Strain of muscle, fascia and tendon of lower back, initial encounter (principal); M62.830 Muscle spasm of back; F17.200 Nicotine dependence, unspecified, uncomplicated; X58.XXXA Exposure to other specified factors, initial encounter
CPT/HCPCS: 99283; 96372 ×3; J3360; J1171; J1885